=== PATIENT | female | born 1980 | race African-American/Black ===

== ENCOUNTER 2024-09-04 13:35 | Emergency (ER) | payer MEDICAID ==
[~2024-09-04] VITALS: Ht 157.5 cm; Wt 72.0 kg
[2024-09-04 13:38] VITALS: O2SAT 100
[2024-09-04 14:02] VITALS: BP 126/85; PULSE 81; RESP 18; TEMP 98.1; O2SAT 99
[2024-09-04] MEDS ORDERED: IBUP-2029 MT (16:23)
== END 2024-09-04 16:41 | disposition home or self-care (01) ==
LOC: ER 13:53
DX: R07.89 Other chest pain (principal)
CPT/HCPCS: 71045; 93005; 99283